=== PATIENT | female | born 1965 | race Caucasian/White ===

== ENCOUNTER → 2021-07-18 | Outpatient (CLI) | payer OTHER | LOC: MC.RAD 08:15 | DX: Z12.31 Encounter for screening mammogram for malignant neoplasm of breast (principal) ==

== ENCOUNTER 2022-05-15 11:59 | Emergency (ER) | payer OTHER ==
[~2022-05-15] VITALS: Ht 160 cm; Wt 65.0 kg
[2022-05-15 12:06] VITALS: BP 117/65; TEMP 98
[2022-05-15] MEDS ORDERED: VALTREX1 GM PO (12:38)
[2022-05-15] MEDS ORDERED: PREDNISONE20 MG PO (12:38)
[2022-05-15 12:54] VITALS: PULSE 75
== END 2022-05-15 12:54 | disposition home or self-care (01) ==
LOC: COL.ER 11:59
DX: G51.0 Bell's palsy (principal)

== ENCOUNTER → 2023-09-22 | Outpatient (CLI) | payer BC ==
[~2023-09-22] MED LIST: NORCO 325 MG-51 TAB PO; PREDNISONE20 MG PO; VALTREX1 GM PO
== END ==
LOC: MC.RAD 14:09
DX: Z12.31 Encounter for screening mammogram for malignant neoplasm of breast (principal)